=== PATIENT | female | born 1995 | race Asian ===

== ENCOUNTER 2022-10-07 17:09 | Emergency (ER) | payer BC ==
[2022-10-07] MEDS ORDERED: IBUPROFEN 400 MG TABLET PO STA (17:29)
[2022-10-07] MEDS ORDERED: CLOBETASOL 0.05% OINT 15 GM TUBE TOP STA (17:29)
--- NOTE | 2022-10-07 17:31 | ED Physician Documentation ---
PD HPI UPPER EXT INJURY - Stated complaint Stated Complaint: SWOLLEN LT ELBOW - Chief complaint Chief Complaint: Trauma Ext - History obtained from History obtained from: Patient - Additonal information Additional information: 27-year-old otherwise healthy [id number] woman who is visiting from [facility]. 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 Also mild left wrist pain. About 24 hours ago applied Russell balm in that area now has redness and itching as well. PD PAST MEDICAL HISTORY - Present Medications Home Medications: Ambulatory Orders Medication Instructions Recorded Confirmed Clobetasol 0.05% Oint [Temovate 1 applic TP BID #45 ml 10/07/22 0.05% Oint] - Allergies Allergies/Adverse Reactions: Allergies Allergy/AdvReac Type Severity Reaction Status Date / Time antiarthritic combination Allergy Hives Verified 10/07/22 17:23 no.1 [From Russell Prospect] camphor [From Russell Prospect] Allergy Hives Verified 10/07/22 17:23 codeine Allergy Hives Verified 10/07/22 17:23 menthol [From Russell [place]] Allergy Hives Verified 10/07/22 17:23 methyl salicylate Allergy Hives Verified 10/07/22 17:23 [From Russell Prospect] tea tree Allergy Hives Verified 10/07/22 17:23 PD ED PE NORMAL - Vitals Vital signs reviewed: Yes - General General: Alert and oriented X 3, No acute distress - Neck Neck: Supple, no meningeal sign, No bony TTP - Derm Derm: Normal color, Warm and dry - Extremities Extremities: Other (She is very swollen about the left elbow and cannot range it at all. That said it is not really tender per se. There is a contact dermatitis on the outside of the left elbow. Mild tenderness with limited range of motion of the left wrist as well.) - Neuro Neuro: Alert and oriented X 3, Normal speech Results - Vitals Vitals: Vital Signs - 24 hr 10/07/22 10/07/22 17:19 19:03 Temperature 36.3 C L Heart Rate 68 72 Respiratory 16 16 Rate Blood Pressure 106/63 115/71 O2 Saturation 99 100 Oxygen O2 Source Room air - Rads (name of study) 4 view x-rays of the left wrist are negative. Relevant Findings:: Final report received, EMP independent interpretation of test Left elbow x-ray is negative Relevant Findings:: Final report received, EMP independent interpretation of test PD Medical Decision Making - ED course ED course: 27-year-old woman with left elbow more than wrist injuries. Relevant x-rays negative but she is quite swollen and tender. Especially given the effusion on x-ray she was continued in a sling. She declined splinting which is not unreasonable as she will have to apply topical steroid to the left elbow now that she has contact dermatitis there from Russell balzahida. She will follow-up with an orthopedist on return home. Departure - Departure Disposition: 01 Home, Self Care Clinical Impression: Elbow sprain Qualifiers: Encounter type: initial encounter Laterality: left Qualified Code(s): S53.402A - Unspecified sprain of left elbow, initial encounter Wrist sprain Qualifiers: Encounter type: initial encounter Laterality: left Qualified Code(s): S63.502A - Unspecified sprain of left wrist, initial encounter Contact dermatitis Qualifiers: Contact dermatitis type: allergic Contact dermatitis trigger: drugs in contact with skin Qualified Code(s): L23.3 - Allergic contact dermatitis due to drugs in contact with skin Condition: Good Record reviewed to determine appropriate education?: Yes Instructions: ED Dermatitis Contact, ED Sprain Elbow Prescriptions: Clobetasol 0.05% Oint [Temovate 0.05% Oint] 1 applic TP BID #45 ml Comments: As discussed, x-rays of the left wrist and elbow were negative except for a small joint effusion. That said given how much swelling and limited range of motion there is I think would be appropriate for you to follow-up with an orthopedist on return home. You can wear the sling for comfort until then. A quick Google search shows that there are several orthopedic surgeons in [facility]. Discharge Date/Time: 10/07/22 19:06
--- NOTE | 2022-10-07 18:50 | XRAY Report ---
PROCEDURE: Wrist 4 View LT INDICATIONS: Fall with wrist and elbow injury TECHNIQUE: 4 views of the wrist were acquired. COMPARISON: Correlation is made with the accompanying elbow plain films. FINDINGS: Bones: No fractures or dislocations. No suspicious bony lesions. Note is made of negative ulnar variance. Scaphoid view: No scaphoid fractures are seen. Soft tissues: No suspicious soft tissue calcifications or masses. IMPRESSION: No displaced fractures are seen on these plain films. If there is snuffbox tenderness (or other clinical concern for a fracture not seen on these images) p lease consider a dedicated CT study or a short-term follow-up plain film series, following splinting. Reviewed by: Quinton Mcginnis MD on 10/07/2022 5:48 PM [facility] Approved by: Quinton Mcginnis MD on 10/07/2022 5:48 PM [facility] Station ID: [id number]
--- NOTE | 2022-10-07 18:54 | XRAY Report ---
PROCEDURE: Elbow 3 View LT INDICATIONS: Fall with wrist and elbow injury` TECHNIQUE: 3 views of the elbow were acquired. COMPARISON: Correlation is made with the accompanying wrist plain films. FINDINGS: Bones: No fractures or dislocations. No suspicious bony lesions. Soft tissues: There is a small effusion. No suspicious soft tissue calcifications or masses. IMPRESSION: Small joint effusion, without a displaced fracture seen on these plain films. Please correlate with focal tenderness. If there is point tenderness (or other clinical concern for a fracture not seen on these plain films) then please consider a dedicated CT study or a short term fo llow up plain film series for further evaluation. If it would be helpful for clinical management decision making, please consider a dedicated, schedule d elbow MRI for further evaluation (assuming that there is no contraindication). Reviewed by: Quinton Mcginnis MD on 10/07/2022 5:52 PM [facility] Approved by: Quinton Mcginnis MD on 10/07/2022 5:52 PM [facility] Station ID: [id number]
[2022-10-07 19:07] VITALS: BP 115/71
== END 2022-10-07 19:06 | disposition home or self-care (01) ==
LOC: ED 17:09
DX: S53.402A Unspecified sprain of left elbow, initial encounter (principal); S63.502A Unspecified sprain of left wrist, initial encounter; L23.3 Allergic contact dermatitis due to drugs in contact with skin; W17.89XA Other fall from one level to another, initial encounter; Y93.89 Activity, other specified
CPT/HCPCS: 73080; 73110; 99283; 99284; A9270